=== PATIENT | female | born 1955 | race Caucasian/White ===

== ENCOUNTER 2017-05-15 06:37 | Day surgery (SDC) | payer BC, OTHER ==
[2017-05-15] MEDS ORDERED: Sodium Chloride 0.9% 10 ML Syringe FLUSH PRN (06:45)
[2017-05-15] MEDS ORDERED: Lactated Ringers 1,000 ML IV SCH (06:45)
[2017-05-15] MEDS ORDERED: Midazolam 1 MG/ML 2 ML SDV IV ONE (08:00)
[2017-05-15] MEDS ORDERED: Propofol 200 MG/20 ML SDV IV ONE (08:00)
[2017-05-15] MEDS ORDERED: Lidocaine 2% 100 MG/5 ML Syringe IVPUSH ONE (08:00)
--- NOTE | 2017-05-15 08:20 | PCM.OPNOTE ---
- General Post-Op/Procedure Note Date of Surgery/Procedure: 05/15/17 Operative Procedure(s): egd with bx Findings: gastritis small hiatal hernia Pre Op Diagnosis: epigastric abd pain and bloating Post-Op Diagnosis: gastritis. small hiatal hernia Anesthesia Technique: MAC Primary Surgeon: Jg Solorzano Anesthesia Provider: Laure Salgado Pathology: stomach Complications: None Condition: Good Free Text/Narrative:: see dictation
[2017-05-15 10:09] VITALS: BP 134/81
--- NOTE | 2017-05-15 12:16 | OR ---
DATE OF OPERATION: 05/15/2017 SURGEON: Jg Solorzano MD PROCEDURE PERFORMED: Esophagogastroduodenoscopy with cold forceps biopsy. PREOPERATIVE DIAGNOSIS: Epigastric abdominal pain and bloating. POSTOPERATIVE DIAGNOSIS: Gastritis and hiatal hernia. INDICATIONS FOR PROCEDURE: This is a 62-year-old white female, who was referred with the above-mentioned complaints. She was offered and accepted an EGD. DESCRIPTION OF PROCEDURE: After an excellent IV sedation was administered, the bite block was inserted. The flexible endoscope was passed without difficulty down the patient's esophagus into the stomach. The stomach was insufflated, scope was passed through the pylorus to the second portion of duodenum and slowly withdrawn. The following findings were noted. Duodenum is unremarkable. Stomach, mild gastritis with small hiatal hernia with the GE junction measuring at approximately 37 cm. Biopsies were taken of the stomach. The esophagus was unremarkable. The stomach was deflated, scope was removed. The patient tolerated the procedure well, and was taken to recovery in good condition. /[id number] /CHAOL
== END 2017-05-15 09:30 | disposition home or self-care (01) ==
LOC: FB.SDS 06:37
PROVIDERS: ATTEND Surgery
DX: K29.50 Unspecified chronic gastritis without bleeding (principal); K44.9 Diaphragmatic hernia without obstruction or gangrene; E03.9 Hypothyroidism, unspecified; Z79.899 Other long term (current) drug therapy; Z90.49 Acquired absence of other specified parts of digestive tract; Z98.890 Other specified postprocedural states; Z87.891 Personal history of nicotine dependence
CPT/HCPCS: 43239; 88305; 88342; J2250; J2704; J7120

== ENCOUNTER 2024-06-23 07:16 | Day surgery (SDC) | payer MEDICARE ==
[~2024-06-23 07:16] MED LIST: Sodium Chloride 0.9% 10 ML Syringe FLUSH PRN
[2024-06-23] MEDS ORDERED: Lidocaine 2% Viscous Solution 15 ML UD PO ONE (07:17)
[2024-06-23] MEDS ORDERED: Lidocaine 2% 100 MG/5 ML Syringe IVPUSH ONE (07:17)
[2024-06-23] MEDS ORDERED: Propofol 200 MG/20 ML SDV IV ONE (07:17)
[2024-06-23] MEDS: Lactated Ringers 1,000 ML IV SCH (08:10)
[2024-06-23] MEDS: Simethicone Drops 40 MG/0.6 ML 30 ML Bottle ONE (08:50)
[2024-06-23 11:40] VITALS: BP 144/73; PULSE 56
== END 2024-06-23 10:05 | disposition home or self-care (01) ==
LOC: FB.SDS 07:16
PROVIDERS: ATTEND Surgery
DX: K29.50 Unspecified chronic gastritis without bleeding (principal); K21.00 Gastro-esophageal reflux disease with esophagitis, without bleeding; E03.9 Hypothyroidism, unspecified; I10 Essential (primary) hypertension; Z79.899 Other long term (current) drug therapy; Z79.890 Hormone replacement therapy; Z87.891 Personal history of nicotine dependence
CPT/HCPCS: 00731; 88305; 88342; A9270-GY; J2704; J7120

== ENCOUNTER 2024-09-29 14:26 | Emergency (ER) | payer MEDICARE ==
[2024-09-29 14:56] VITALS: PULSE 88
[2024-09-29] MEDS: methylPREDNISolone Sodium Succinate 125 MG/2 ML SDV IM ONE (15:37)
[2024-09-29] MEDS: hydrOXYzine HCl 50 MG/ML SDV IM ONE (15:37)
[2024-09-29 15:44] LABS: HEMOGLOBIN 14.9 g/dL (11.4-15.5); MEAN PLATELET VOLUME 10.3 fL (7.1-12.4)
[2024-09-29 15:47] LABS: HEMATOCRIT 43.5 % (34.2-48.2); MEAN CORPUSCULAR HEMOGLOBIN 31.4 pg (23.9-33.9); MEAN CORPUSCULAR HGB CONC 34.2 g/dL (31.9-34.8); MEAN CORPUSCULAR VOLUME 91.8 fL (76.7-100.5); PLATELET COUNT,PLT 235 x10(3)uL (151-488); RED BLOOD CELL COUNT 4.74 x10(6)uL (3.60-5.20); RED CELL DISTRIBUTION WIDTH 13.6 % (12.3-16.5); WHITE BLOOD CELL COUNT,WBC 9.2 x10-3/uL (3.0-10.3)
[2024-09-29 15:49] LABS: BLOOD UREA NITROGEN,BUN 18 mg/dL (7-18); BUN/CREATININE RATIO 16.4 (9-20); CALCIUM 9.6 mg/dL (8.6-10.2); CARBON DIOXIDE,CO2 27 mmol/L (21-32); CHLORIDE,CL 103 mmol/L (100-110); CREATININE 1.1 mg/dL (0.55-1.02); ESTIMATED GFR 55 mL/min (>60); GLUCOSE RANDOM 118 mg/dL (80-116); POTASSIUM,K 4.2 mmol/L (3.5-5.3); SODIUM,NA 139 mmol/L (135-145)
[2024-09-29 15:55] LABS: ALANINE AMINOTRANSFERASE,ALT 30 U/L (12-36); ALBUMIN 4.3 g/dL (3.2-4.6); ALKALINE PHOSPHATASE 78 IU/L (56-112); ASPARTATE AMNIOTRANSFERASE,AST 26 IU/L (5-25); BILIRUBIN TOTAL 0.5 mg/dL (0.1-1.3); PROTEIN TOTAL,TP 8.7 g/dL (6.0-8.0)
[2024-09-29 15:58] LABS: BAND PERCENT MAN 2 % (0-6); GIANT PLATELETS OCCASIONAL; LYMPHOCYTES PERCENT MAN 16 % (13-37); MONOCYTES PERCENT MAN 5 % (4-12); SEG NEUTROPHILS PERCENT MAN 77 % (46-82)
[2024-09-29 16:26] VITALS: BP 143/93
== END 2024-09-29 16:26 | disposition home or self-care (01) ==
LOC: FB.ED 14:26
DX: L50.0 Allergic urticaria (principal); K21.9 Gastro-esophageal reflux disease without esophagitis; E03.9 Hypothyroidism, unspecified; Z79.890 Hormone replacement therapy; Z79.899 Other long term (current) drug therapy
CPT/HCPCS: 36415; 80053; 84484; 85025; 96372; 99284; J2919; J3410